=== PATIENT | male | born 1955 | race Caucasian/White ===

== ENCOUNTER 2016-11-13 05:35 | Observation (INO) | payer BC, OTHER ==
[2016-11-13] MEDS ORDERED: LR 1,000 ML IV ONE (06:17)
[2016-11-13] MEDS ORDERED: LIDOCAINE 1% 2 ML INJ ID PRN (06:17)
[2016-11-13] MEDS ORDERED: ACETAMINOPHEN 500 MG TAB PO ONE (06:49)
[2016-11-13] MEDS ORDERED: ceFAZolin 2 GM/DEXTROSE 100 ML IV ONE (06:49)
[2016-11-13] MEDS ORDERED: GABAPENTIN 300 MG CAP PO ONE (06:49)
[2016-11-13] MEDS ORDERED: THROMBIN (BOVINE) 5,000 UNIT VIAL TP ONE (06:53)
[2016-11-13] MEDS ORDERED: MIDAZOLAM 2 MG/2 ML VIAL IVP ONE (06:53)
[2016-11-13] MEDS ORDERED: BUPIVACAINE 0.25% 30 ML SDV ONE ×2 (06:53→07:36)
[2016-11-13] MEDS ORDERED: CHLORHEXIDINE GLUC HIBICLENS 118 ML BTL TP ONE (06:53)
--- NOTE | 2016-11-13 06:53 | PDANEPAE ---
ANE History of Present Illness 61 year old male w PMHx of HTN, NIDDM, hypothyroidism (recently started on levothyroxine), obesity presents for cervical disc fusion. Patient with symptoms of numbness/tingling in left shoulder, neck and arm. ANE Past Medical History - Cardiovascular History Hx Hypertension: Yes Hx Arrhythmias: No Hx Chest Pain: No Hx Coronary Artery / Peripheral Vascular Disease: No Hx CHF / Valvular Disease: No Hx Palpitations: No - Pulmonary History Hx COPD: No Hx Asthma/Reactive Airway Disease: No Hx Recent Upper Respiratory Infection: No Hx Oxygen in Use at Home: No Hx Sleep Apnea: No Sleep Apnea Screening Result - Last Documented: Positive - Neurologic History Hx Cerebrovascular Accident: No Hx Seizures: No Hx Dementia: No Neurologic History Comment: H/A 's related to neck condition - Endocrine History Hx Diabetes: Yes Hypothyroid: Yes Hyperthyroid: No Obesity: yes Endocrine History Comment: NIDDM type 2-Hgb A 1 C =7.0 4-17. - Renal History Hx Renal Disorders: No - Liver History Hx Hepatic Disorders: No - Neurological & Psychiatric Hx Hx Neurological and Psychiatric Disorders: Yes Neurological / Psychiatric History Comment: cervical HNP. numbness: L shoulder, L arm, L hand. weakness L arm. - Cancer History Hx Cancer: No - Congenital Disorder History Hx Congenital Disorders: No - GI History GERD: no Hx Gastrointestinal Disorders: No - Other Health History Other Health History: L knee meniscal tear - Chronic Pain History Chronic Pain: No - Surgical History Prior Surgeries: bilat knee scopes. L heel spur excision ANE Review of Systems Review of systems is: negative Review of Systems: - Exercise capacity Exercise capacity: >=4 METS METS (RN): 4 METS ANE Patient History - Allergies Allergies/Adverse Reactions: cefaclor [From Ceclor] Allergy (Verified 11/13/16 06:23) Hives Penicillins Allergy (Verified 11/13/16 06:23) Hives - Home Medications Home medications: home medication list seen and reviewed - NPO status NPO Status: no food or drink >8 hours NPO Since - Liquids (Date): 11/12/16 NPO Since - Liquids (Time): 18:00 NPO Since - Solids (Date): 11/12/16 NPO Since - Solids (Time): 18:00 - Anes Hx Anes Hx: no prior problems - Smoking Hx Smoking Status: Former smoker - Alcohol Use Alcohol Use: Occasionally - Family Anes Hx Family Anes Hx: neg - N/A ANE Labs/Vital Signs - Vital Signs Vital Signs: reviewed preoperatively; see RN documention for details Blood Pressure: 143/89 Heart Rate: 65 Respiratory Rate: 16 O2 Sat (%): 92 Height: 185.42 cm Weight: 131.542 kg ANE Physical Exam - Airway Neck exam: FROM Mallampati Score: Class 2 Mouth exam: normal dental/mouth exam - Pulmonary Pulmonary: no respiratory distress - Cardiovascular Cardiovascular: regular rate and rhythym - ASA Status ASA Status: III ANE Anesthesia Plan Anesthesia Plan: general endotracheal anesthesia Total IV Anesthesia: No
[2016-11-13] MEDS ORDERED: BACITRACIN 50,000 UNITS/10 ML SYR IRR ONE (06:54)
[2016-11-13] MEDS ORDERED: PROPOFOL/EMULSION 500 MG/50 ML BOTTLE IV ONE ×2 (07:02→07:59)
[2016-11-13] MEDS ORDERED: fentaNYL 100 MCG/2 ML INJ ONE ×3 (07:02→10:05)
[2016-11-13] MEDS ORDERED: PROPOFOL 200 MG/20 ML VIAL ONE (07:02)
[2016-11-13] MEDS ORDERED: REMIFENTANIL HCL 1 MG VIAL ONE ×2 (07:02→07:59)
[2016-11-13] MEDS ORDERED: PHENYLEPHRINE HCL 100 MCG/ML SYR ONE (07:08)
[2016-11-13] MEDS ORDERED: SUCCINYLCHOLINE CHLORIDE*ANESTHESIA ONLY*200 MG/10 ML SYR IVP ONE (07:08)
--- NOTE | 2016-11-13 07:09 | PDHPUP ---
History & Physical Update H&P update statement: This history and physical update is based on an assessment of the patient which was completed after admission or registration (within 24 hours), but prior to the surgery/procedure. H&P update: H&P reviewed & patient examined, no change in patient's condition since H&P completed
[2016-11-13] MEDS ORDERED: BUPIVACAINE 0.5% 30 ML SDV ONE (07:36)
[2016-11-13] MEDS ORDERED: epHEDrine SULFATE 10 MG/ML SYR ONE (08:07)
[2016-11-13] MEDS ORDERED: NALOXONE HCL 0.4 MG/ML INJ IVP PRN (08:16)
[2016-11-13] MEDS ORDERED: LR 500 ML IV PRN (08:16)
[2016-11-13] MEDS ORDERED: HYDROmorphONE/DILAUDID 1 MG/ML INJ IVP PRN (08:16)
[2016-11-13] MEDS ORDERED: DEXAMETHASONE 4 MG/ML VIAL IVP PRN (08:16)
[2016-11-13] MEDS ORDERED: METHOCARBAMOL 750 MG TAB PO PRN (09:12)
[2016-11-13] MEDS ORDERED: oxyCODONE IR 5 MG TAB PO PRN (09:12)
[2016-11-13] MEDS ORDERED: LACTULOSE 20 GM/30 ML UDCUP PO PRN (09:12)
[2016-11-13] MEDS ORDERED: MAGNESIUM HYDROXIDE 30 ML UDCUP PO PRN (09:12)
[2016-11-13] MEDS ORDERED: diphenhydrAMINE 25 MG CAP PO PRN (09:12)
[2016-11-13] MEDS ORDERED: ONDANSETRON DISINTEGRATING 4 MG TAB PO PRN (09:12)
[2016-11-13] MEDS ORDERED: BISACODYL 10 MG SUPP PR PRN (09:12)
[2016-11-13] MEDS ORDERED: ONDANSETRON 4 MG/2 ML VIAL IVP PRN (09:12)
[2016-11-13] MEDS ORDERED: NS W/ 20 KCl/L 1,000 ML IV SCH (09:15)
--- NOTE | 2016-11-13 09:16 | SOAPPROG ---
SOAP Progress Note Assessment/Plan: Assessment: 61 yo M sp C6/7 ACDF Plan: stable to 3N hard collar JUANA x 1 please call with neuro changes 11/13/16 09:16 Subjective: + neck pain, no arm pain Objective: Vital Signs Temp Pulse Resp BP Pulse Ox 36.9 C 65 16 143/89 H 92 11/13/16 06:31 11/13/16 06:53 11/13/16 06:53 11/13/16 06:53 11/13/16 06:53 awake, alert PERRL, no facial droop KAREN x4 + light touch ICD10 Worksheet Patient Problems: Problems Problem Status Onset Fusion of spine of cervical region Acute - ICD10 Problem Qualifiers (1) Fusion of spine of cervical region
--- NOTE | 2016-11-13 09:34 | GOP ---
[f rep st] OPERATIVE REPORT DATE OF OPERATION: 11/13/2016 SURGEON: Marvin France MD FIELD ATTENDANT: [place] PA-C. ANESTHESIA: General endotracheal. PREOPERATIVE DIAGNOSIS: Large left C6-7 disease, herniation with severe left C7 radiculopathy. Prof ound C7 weakness. Failed conservative care postop. POSTOPERATIVE DIAGNOSIS: Large left C6-7 disease, herniation with severe left C7 radiculopathy. Pro found C7 weakness. Failed conservative care postop. PROCEDURE PERFORMED: 1. Mini open exposure for C6-7 complete anterior cervical diskectomy and arthrodesis with an 11 mm s tructural PEEK interbody spacer and local autograft. 2. Placement of a 23 mm LnK CastleLoc-P anterior cervical plate with self-drilling screws. 3. Use of intraoperative microscopy and fluoroscopy. FINDINGS: ESTIMATED BLOOD LOSS: 50 cc. INDICATIONS: The patient is a 61-year-old man with a large left C6-7 disk herniation causing severe neuroforaminal encroachment with a profound C7 radiculopathy and failed conservative care. He presen ts now for surgical decompression and stabilization. DESCRIPTION OF PROCEDURE: After informed consent was obtained, the patient was taken to the operatin g room and placed in the supine position with the head in the halter retractor system. The anterior cervical region was prepped and draped in a sterile fashion. After fluoroscopic localization of tracy ect levels, the subcutaneous and intramuscular tissues were infiltrated with local anesthesia. A hor izontal linear incision was then created at the level of the C6-7 interspace. This was carried throu gh the platysmal layer using monopolar electrocautery and carried in the avascular plane between the sternocleidomastoid and carotid sheath laterally and the strap muscles, trachea, and esophagus medial ly down to the prevertebral fascia, which was carefully incised with Metzenbaum scissors. The C6-7 i nterspace was identified and re-verified using intraoperative fluoroscopy. The large osteophyte was carefully removed and harvested for local autograft. The [place] distraction pins were carefully inse rted and a slight amount of distraction created across the interspace. A complete diskectomy was the n performed with preparation of endplates and removal of the posteriorly protruding osteophytes and t he posterior longitudinal ligament. Bilateral foraminotomies were performed, and a large free fragme nt disk herniation pulled out of the C7 neural foramina on the left. Following adequate decompressio n, meticulous hemostasis was achieved, and the wound and disk space were copiously irrigated with ant ibiotic irrigation. The remaining endplates were carefully prepared and an appropriately sized 11 mm structural PEEK interbody spacer packed with the local autograft in the center was placed under fluo roscopic image guidance. The distraction was removed and an appropriately sized 23 mm CastleLoc-P Ln K anterior cervical plate was placed and secured with self-drilling screws. Following re verificatio n of good position of the plate, screws, and interbody spacers, using biplanar fluoroscopy, the locki ng mechanisms were engaged. A drain was placed. The subcutaneous and intramuscular tissues were inf iltrated with the study drug, and the wound was closed in a layered fashion using interrupted Vicryl sutures followed by Steri-Strips on the skin. COMPLICATIONS: None. DISPOSITION: The patient is currently in the process of being repositioned for extubation. /[id number]/MODL
[2016-11-13] MEDS: fentaNYL 100 MCG/2 ML INJ IVP PRN ×2 (10:06→10:16)
[2016-11-13] MEDS ORDERED: oxyCODONE IR 5 MG TAB ONE (10:30)
[2016-11-13 12:26] VITALS: RESP 16
[2016-11-13 13:23] VITALS: O2SAT 90
[2016-11-13] MEDS ORDERED: ceFAZolin 2 GM/DEXTROSE 100 ML IV SCH (14:00)
[2016-11-13] MEDS ORDERED: ACETAMINOPHEN 500 MG TAB PO SCH (14:00)
[2016-11-13 14:31] VITALS: BP 148/70; PULSE 78; TEMP 99
[2016-11-13] MEDS ORDERED: POLYETHYLENE GLYCOL 3350 17 GM PKT PO SCH (16:00)
--- NOTE | 2016-11-13 19:27 | POSTANESTH ---
Post Anesthetic Evaluation Cardiovascular Status: Normal, Stable, Similar to Pre-Op Cond Respiratory Status: Normal, Stable, Similar to Pre-op Cond. Level of Consciousness/Mental Status: Can Participate in Eval, Alert and Oriented Pain Control: Adequate, Prn Tx Ordered Nausea/Vomiting Control: Adequate, Prn Tx Ordered Complications Possibly Related to Anesthesia: None Noted
[2016-11-13] MEDS ORDERED: FAMOTIDINE 20 MG TAB PO SCH (21:00)
[2016-11-13] MEDS ORDERED: SENNOSIDES/DOCUSATE SODIUM TAB PO SCH (21:00)
--- NOTE | 2016-11-14 12:05 | ASDISCHSUM ---
Discharge Information Plan Status:Home with No Needs Medically Cleared to Leave: Discharge Date:11/13/2016 04:45 PM CM D/C Disposition: ADT D/C Disposition:Home, Routine, Self-Care Projected Discharge Date:11/13/2016 04:45 PM Transportation at D/C: Discharge Delay Reason: Follow-Up Date:11/13/2016 04:45 PM Discharge Slot: Final Diagnosis: Placement Information Patient Contact Information Contact Name:LEANNA Relationship: Address:[address] Work Phone: City:[place] Alternate Phone: State/Zip Code:[place] [address] Email: Financial Information Financial Class:HMO and PPO Plans Primary Plan Desc:[employer] [employer] Primary Plan Number:[id number] Secondary Plan Desc: Secondary Plan Number: Assessment Information Intervention Information
[2016-11-16] MEDS ORDERED: ENOXAPARIN 40 MG/0.4 ML SYR SC SCH (09:00)
== END 2016-11-13 16:45 | disposition home or self-care (01) ==
LOC: FSGY 05:35 → INTOOBSV 09:13 → F3N 09:13
PROVIDERS: ADMIT Neurological Surgery; ATTEND Neurological Surgery
PROC: 0RG10A0 Fusion of Cervical Vertebral Joint with Interbody Fusion Device, Anterior Approach, Anterior Column, Open Approach (ICD-10-PCS; principal; 2016-11-13 07:15)
PROC: 00NW0ZZ Release Cervical Spinal Cord, Open Approach (ICD-10-PCS; principal; 2016-11-13 07:15)
DX: M50.123 Cervical disc disorder at C6-C7 level with radiculopathy (principal); I10 Essential (primary) hypertension; E11.9 Type 2 diabetes mellitus without complications; E03.9 Hypothyroidism, unspecified
CPT/HCPCS: C1713; G0378; J0171; J0330; J0690; J2250; J2370; J2704; J3010